=== PATIENT | male | born 1930 | race Caucasian/White ===

== ENCOUNTER → 2017-09-26 | Outpatient (CLI) | payer MEDICARE, OTHER ==
[~2017-09-26] MED LIST: AMBIEN 10MG10 MG PO; ANTIVERT 12.512.5 MG PO; ASPIRIN 32325 MG/TAB PO; ASPIRIN E.C. 8181 MG PO; BETA BLOCKER; CARDI-OMEGA1000 MG PO; CITALOPRAM20 MG PO; DOXYCYCLINE 10100 MG PO; FAMOTIDINE20 MG PO; FLOMAX; GABAPENTIN300 M1 PO; GABAPENTIN300 MG PO; METOPROLOL TART25 MG PO; MIRAPEX 0.125MG PO; MIRAPEX0.25 MG PO; MIRAPEX0.5 MG PO; MULTIPLE VITAMI1 CAP PO; NEURONTIN100 MG/CAP PO; NORCO 325 MG-51 TAB; NORCO 325 MG-51 TAB PO; PEPCID AC20 M1 PO; PLAVIX 75MG TAB75 MG PO; VITAMIN C BUFF500 MG PO; VITAMIN COMPLEX1 TA1 PO; ZOCOR; ZOCOR40 MG PO; ZOLPIDEM TART10 MG PO; ZOLPIDEM10 MG PO
== END ==
LOC: COL.RAD 10:13
DX: K80.20 Calculus of gallbladder without cholecystitis without obstruction (principal)

== ENCOUNTER → 2018-01-15 | Outpatient (CLI) | payer MEDICARE, OTHER | LOC: COL.RAD 12:42 | DX: E04.1 Nontoxic single thyroid nodule (principal) ==

== ENCOUNTER → 2018-07-19 | Outpatient (CLI) | payer MEDICARE, OTHER | LOC: COL.VAS 11:07 | DX: F01.50 Vascular dementia, unspecified severity, without behavioral disturbance, psychotic disturbance, mood disturbance, and anxiety (principal); I63.9 Cerebral infarction, unspecified; E04.1 Nontoxic single thyroid nodule | CPT/HCPCS: A9585 ==

== ENCOUNTER 2020-09-06 13:32 | Inpatient (IN) | payer MEDICARE, OTHER ==
[~2020-09-06] VITALS: Ht 182.9 cm; Wt 80.6 kg
[2020-09-06 13:53] LABS: BASO # 0.1 (0.0-0.2); BASO % 0.8 % (0.0-2.0); EOS # 0.1 (0.0-0.7); EOS % 1.4 % (0-4.0); GRAN # 4.5 (1.4-6.5); HEMATOCRIT 46.1 % (42.0-52.0); HEMOGLOBIN 15.5 g/dl (13.5-18.0); LYMPH # 1.9 (1.2-3.4); LYMPH % 26.3 % (20.0-51.0); MEAN CELL VOLUME 94 fl (80.0-100.0); MEAN CORPUSCULAR HEMOGLOBIN 31 pg (27.0-31.0); MEAN CORPUSCULAR HGB CONC 34 g/dl (33.0-37.0); MEAN PLATELET VOLUME 11.9 fl (7.4-10.4); MONO # 0.5 (0.1-0.6); MONO % 7.4 % (1.7-9.3); PLATELET COUNT 191 K/mm3 (130-400); RED BLOOD COUNT 4.93 M/mm3 (4.20-5.60); REDCELL DISTRIBUTION WIDTH-CV 12.4 % (11.5-14.5)
[2020-09-06 14:07] LABS: MAGNESIUM 2.2 mg/dL (1.6-2.3)
[2020-09-06 14:21] LABS: TROPONIN-I 0.075 ng/mL (0.000-0.035)
[2020-09-06 14:35] LABS: ALBUMIN 3.6 gm/dL (3.5-5.0); BILIRUBIN,TOTAL 0.8 mg/dL (0.0-1.0); CALCIUM 8.7 mg/dL (8.4-10.2); CREATININE, serum 1.15 (0.66-1.25); POTASSIUM 3.9 mmol/L (3.4-5.0)
[2020-09-06] MEDS ORDERED: SEROQUEL 2525 MG/TAB PO (16:31)
[2020-09-06] MEDS ORDERED: ARICEPT10 MG PO (16:35)
[2020-09-06] MEDS ORDERED: SYNTHROID 0.0.025 MG PO (16:37)
[2020-09-06] MEDS ORDERED: SINGULAIR 110 MG/TAB PO (16:39)
[2020-09-06 17:44] VITALS: BP 109/56; PULSE 52; TEMP 97.6
[2020-09-06 19:26] VITALS: BP 114/64; PULSE 57; TEMP 97.5
--- NOTE | 2020-09-06 20:32 | NUR ---
Pt in bed. Oriented to self. Takes HS meds without problem. Has SL to left wrist without redness or swelling. Denies pain. Bed alarm set, pt reports fall this AM without injury.
[2020-09-07] VITALS (7 sets, daily range): BP systolic 96–137; BP diastolic 45–67; PULSE 55–66; TEMP 97.2–98.4
--- NOTE | 2020-09-07 00:25 | NUR ---
PT BELLIGERENT, TRYING TO GET OOB UNASSISTED. THREATENED TO HIT STAFF. WAS ABLE TO RE-DIRECT AND BECAME MORE CALM AND STAYED IN BED.
--- NOTE | 2020-09-07 06:00 | NUR ---
TAKES AM MED WITHOUT PROBLEM THIS AM. COOPERATIVE WITH STAFF.
[2020-09-07 07:06] LABS: CALCIUM 8.6 mg/dL (8.4-10.2); CREATININE, serum 1.2 (0.66-1.25); POTASSIUM 3.6 mmol/L (3.4-5.0)
[2020-09-07 07:26] LABS: BASO # 0.1 (0.0-0.2); BASO % 0.7 % (0.0-2.0); EOS # 0.1 (0.0-0.7); EOS % 1.2 % (0-4.0); GRAN # 5.4 (1.4-6.5); GRAN % 72.3 % (42.2-75.2); HEMATOCRIT 44.8 % (42.0-52.0); HEMOGLOBIN 14.8 g/dl (13.5-18.0); LYMPH # 1.3 (1.2-3.4); LYMPH % 17.7 % (20.0-51.0); MEAN CELL VOLUME 96 fl (80.0-100.0); MEAN CORPUSCULAR HEMOGLOBIN 32 pg (27.0-31.0); MEAN CORPUSCULAR HGB CONC 33 g/dl (33.0-37.0); MEAN PLATELET VOLUME 12.3 fl (7.4-10.4); MONO # 0.6 (0.1-0.6); MONO % 7.8 % (1.7-9.3); PLATELET COUNT 179 K/mm3 (130-400); RED BLOOD COUNT 4.69 M/mm3 (4.20-5.60); REDCELL DISTRIBUTION WIDTH-CV 12.6 % (11.5-14.5)
--- NOTE | 2020-09-07 11:10 | NUR ---
Plan is to evaluate for snf or home. MITZI spoke with Destiney (mitzi) with [facility] and Patient pcp Dr. Lissette Whitt about patient care. Destiney left message about the patient possible need for additional care. Destiney reports that she offered that family private duty care and home health services. Destiney reports that patient has dementia and but also the is experiancing some memory loss. MITZI contacted Alma at for additional information about the husbands care. Alma reports that they reside locally and at home. Alma indicated that she is the care provided and does not believe that they need additonal care supports while she can still do it. Alma completed assessment. Patient is reported to use a cane and walker interchanging, does best with walker. Patient is reports to have no othe DME use for care. Patient is reports to have incontinence. Patient prefers [facility] for Pharmacy. \ reports that they have a son and dtr in law Eufemia who is apart of [employer]. Alma gave permission to discuss healthcare information with Eufemia verbally. Eufemia Kareem . reports that she has most of the information. They have a poa but not on file, unknown who is named on POA. They are to provide us with a copy. Eufemia reports that she believe that the patient is declining and they (her and her ) are recieving increased calls about the patient running off, falling, and tolieting. Eufemia reports that they would need to have an evaluation of care, pt, ot, in order for them to make a decision to come home. Eufemia reports that they may be open to retirement care however his is not due to not being able to visit. DTR-in Law concerned with the wifes ability to care for patient. DTR states that she would like patient to be able to walk okay before coming home and use restroom. Awaiting PT-OT screen for next review of care.
--- NOTE | 2020-09-07 11:30 | NUR ---
Patient was not able to stand and work with PT this morning. They helped him to the side of the bed but he could not sit on his own or stand and put weight on his legs. We transferred him to the chair. He was not able to put any weight on his left leg and was leaning over onto the right with the transfer. He denies pain. He does not understand where he is or why he is here. Have spoken with his , she asked that we speak with Eufemia his daughter in law. Spoke with Eufemia and gave her an update ont he patients status. No other changes at this time. Call light within reach. Bed/chair alarm on.
--- NOTE | 2020-09-07 15:30 | NUR ---
Spoke with patients . She is upset because the patient is not discharging. She wants him at home. Explained that patient is very weak and can not stand without max 2 person assist. She stated that we are keeping him down and he will not do well when he leaves. She is upset about the visitor policy. She thinks he will be able to come home and walk with a walker. Explained that as of right now going home is not a safe option. She stated she would call her son and daughter in law. She stated we are holding him here without treating him. Explained that we are, he has physical therapy working with him and that we are checking his labs. She stated we keep saying it is cardiac but its not his heart. Explained that his labs are showing elevated troponin. Gave the patients phone number to the physician so he can speak with her directly. Also spoke with the daughter in law again about the patient and updated her as well. No other changes at this time. Call light within reach. Bed alarm on.
--- NOTE | 2020-09-07 20:15 | NUR ---
Pt in bed. Is oriented to self and birthday, does not know where he is or why he is here. Pt is [place]. Attempted to orient pt. Takes HS med without problem. Has IVF infusing to right forearm, no redness or swelling noted. Incontinent of urine, bed linens changed. Bed alarm on.
--- NOTE | 2020-09-07 22:30 | NUR ---
Pt's Alma called. Asks for update and questions why no one has called her about her husbands status. States "it sounded like he was on deaths door". Reviewed SS note with Alma, at first she didn't remember anyone calling her, then remembered after reading the note to her. Alma reports having "insurance" for her to come home and have home care, she repeats this 3 times during the call. Informed Alma of pts status and his weakness. She insists she wants pt to come home. Did tell Alma we would have the doctor call her after pt is seen in the morning. She then again asks what was wrong with her and why no one has called her. Reviewed the information with her again.
[2020-09-08 00:04] VITALS: BP 118/67; PULSE 65; TEMP 98.5
--- NOTE | 2020-09-08 04:15 | NUR ---
Pt has scooted self to foot of bed. Wants to get up, then reports being dizzy and assisted back to bed. Depends changed due to incontinence of urine. Bed alarm on.
[2020-09-08 04:46] VITALS: BP 130/60; PULSE 60; TEMP 98.7
--- NOTE | 2020-09-08 05:29 | NUR ---
Pt has legs hanging off bed. Reports wanting to go to the bathroom, is too weak to sit up on his own. Depends changed in bed at this time.
[2020-09-08 07:26] VITALS: BP 103/85; PULSE 53; TEMP 98
[2020-09-08 07:48] LABS: BASO # 0.1 (0.0-0.2); BASO % 0.8 % (0.0-2.0); EOS # 0.1 (0.0-0.7); GRAN # 4.1 (1.4-6.5); HEMOGLOBIN 15.3 g/dl (13.5-18.0); LYMPH # 1.6 (1.2-3.4); LYMPH % 24.7 % (20.0-51.0); MEAN CELL VOLUME 96 fl (80.0-100.0); MEAN CORPUSCULAR HEMOGLOBIN 31 pg (27.0-31.0); MEAN CORPUSCULAR HGB CONC 33 g/dl (33.0-37.0); MEAN PLATELET VOLUME 12.2 fl (7.4-10.4); MONO # 0.5 (0.1-0.6); PLATELET COUNT 172 K/mm3 (130-400); RED BLOOD COUNT 4.88 M/mm3 (4.20-5.60); REDCELL DISTRIBUTION WIDTH-CV 12.5 % (11.5-14.5)
[2020-09-08 08:00] LABS: CALCIUM 8.4 mg/dL (8.4-10.2); CREATININE, serum 1.07 (0.66-1.25); POTASSIUM 3.7 mmol/L (3.4-5.0)
--- NOTE | 2020-09-08 11:20 | NUR ---
I have spoken with daughter in law, Eufemia Serna @[phone] regarding the palliative care consult ordered today. She reports to me that pt has been declining at home but was ambulating with walker, eating and drinking at home, although often didn't recognize his and did not recognize his house as his home. Here he is requesting to go to [place]--which Eufemia reports was his home town where he grew up. Their goals for him are to keep him at home and comfortable and will allow a natural to occur. Alma, , is struggling at home without him--although by report, she also has some dementia. I cannot clearly identify a diagnosis for hospice admission, other than pt has lost 13# since last office visit, and family does report a significant decline in functioning these last few months especially. They would prefer not to have him go to a shelter but would like to keep him at home. We discussed home health vs hospice services. I did get Eufemia's permission to contact two of our local hospice agencies to review the case and see if a qualifying diagnosis might be seen by them. I have spoken with Eufemia about both agencies reviewing Esequiel's information and that they may be calling to talk with her later on. She seemed pleased with this progress.
[2020-09-08 12:00] VITALS: BP 180/67; PULSE 68; TEMP 98
--- NOTE | 2020-09-08 14:21 | NUR ---
I have spoken with [facility] who feels that they can defend current situation as hospice appropriate meeting criteria. [facility] would be able to provide palliative home health but did not feel that he met hospice criteria. Alma Serna has requested a hospital bed for pt and it cannot be delivered until later this evening. We will plan on discharge to home under [facility] tomorrow. I have spoken with both Bob and Laura at [facility]. I have spoken with [facility] about this plan and we will plan on discharge by EMS tomorrow.
--- NOTE | 2020-09-08 15:00 | NUR ---
Catherized patient. Spoke with hospitalist. Patient stopped voiding this morning. He was incontinent and after changing him at 0930 he stopped voiding. He stated he needed to go but was not able to. Used and 18fr catheter to catherize patient. 800ml of clear yellow urine returned. Patient tolerated well. Urine sample sent to lab. He has been very confused and keeps trying to get up out of bed/chair. Bed alarm is on. His family is aware of the confusion. No other changes at this time. Call light within reach. Bed alarm on.
--- NOTE | 2020-09-08 15:21 | NUR ---
[employer] contacted patient's , Alma this morning about PT/OT evaluation and recommendation for SNF. Alma states she would like to speak with her family about this. AVA then received a phone call from patient's daughter in law, Eufemia who requested to be the point of contact as Alma gets overwhelmed easily with everything. Eufemia inquired about hospice options so AVA called [facility] about a palliative consult. AVA collaborated with Mary Palliative RN who worked with the family today and [facility] to make arrangements for patient to return home on hospice, tomorrow. [facility] was updated about the plan. AVA will follow up with [facility] and family tomorrow to establish a discharge time and will set up EMS transport.
[2020-09-08 15:50] LABS: MUCOUS Present /lpf; PH 5 (5-8); SQUAMOUS EPITHELIAL None Seen /hpf; URINE APPEARANCE Clear; URINE BACTERIA None Seen /hpf; URINE BILIRUBIN Negative (NEGATIVE); URINE BLOOD 2+ (NEGATIVE); URINE COLOR Yellow; URINE GLUCOSE Negative (NEGATIVE); URINE KETONE Negative (NEGATIVE); URINE LEUKOCYTE ESTERASE Negative (NEGATIVE); URINE NITRATE Negative (NEGATIVE); URINE PROTEIN(semi-quant) Negative (NEGATIVE); URINE UROBILINOGEN Negative (NEGATIVE); URINE WBC 0-2 /hpf
[2020-09-08 16:00] VITALS: BP 148/65; PULSE 72; TEMP 97.8
[2020-09-08 18:05] LABS: COLLECTION METHOD CLEAN CATCH
--- NOTE | 2020-09-08 19:00 | NUR ---
Patient continues to be confused this afternoon. He has been incontinent since being straight catherized earlier. Denies pain and nausea. He has his hearing aide in and it needs a new battery but he won't let me change it. No other changes at this time. Call light within reach. Bed alarm on.
--- NOTE | 2020-09-08 22:29 | NUR ---
Pt has been pleasently confused this evening. He was up in the chair until just now when the PCT and myself assisted him to bed. He required 2 assist with a walker. Patient was incontinent of urine, brief changed. He is hallucinating, seeing family sitting in the room with him. No complaints of pain. Bed alarm on
[2020-09-08 23:05] VITALS: BP 105/66; PULSE 72; TEMP 98.3
[2020-09-09 01:41] VITALS: BP 116/60; PULSE 69; TEMP 97.5
--- NOTE | 2020-09-09 01:51 | NUR ---
Pt became increasingly agitated. Max assist x2 to the commode. Patient did have a large bowel movement, but was not able to void. Bladder scan with 400+ scanned. Order to place champagne.
--- NOTE | 2020-09-09 02:15 | NUR ---
Coffey catheter placed by Laura RN
[2020-09-09 04:13] VITALS: BP 143/77; PULSE 78; TEMP 99.1
--- NOTE | 2020-09-09 04:15 | NUR ---
Pt has been very agitated since placing the champagne catheter. He was upset that it was there. Attempted mitts, which he was able to get off. He was initially not pulling on it, but did eventually break the tubing. 8cc removed from balloon and champagne discontinued. Patient continues to be agitated and is messing with his telemetry. New patches replaced several times. In sitting with the patient at this time.
--- NOTE | 2020-09-09 06:59 | NUR ---
Pt has slept the last few hours.
[2020-09-09 08:00] VITALS: BP 136/71; PULSE 79; TEMP 97.5
--- NOTE | 2020-09-09 08:00 | NUR ---
PATIENT IS CONFUSED AND AGGITATED THIS AM. PATIENT TRYING TO CLIMB OUT OF BED. PATIENT ASSISTED WITH 2-3 ASSIST INTO BEDSIDE CHAIR. PATIENT WAS INCONTINENT OF URINE IN BED, LINENS CHANGED AND PATIENT CLEANED UP. PATIENT VERY COMBATIVE DURING CARES AND PUNCHED EQUIPMENT SERVICE LEAD IN RIGHT FLANK. MITTS WERE INPLACE TO BUE. WELDING EQUIPMENT REPAIRER REPORTS PATIENT BROKE HIS ROBBINS AND NURSING HAD TO FINISH TAKING OUT ROBBINS. NURSING CALLED TO [facility] TELE THIS AM FOR THE SAME REASON. PATIENT REFUSING TO TAKE AM MEDS. HEAD TO TOE ASSESSMENT DONE. PATIENT IS A DNR AND PLANS ARE TO DISCHARGE HOME WITH HOSPICE TODAY. CHAIR ALARM INPLACE. CALL LIGHT IN REACH. PATIENT IN SITE OF NURSES.
--- NOTE | 2020-09-09 09:27 | NUR ---
Spoke with Eufemia, daughter in law, this morning and she reports that the bed had been delivered and that Alma is anxious for him to get home.Pt was quite agitated last night with champagne placement and did require someone to be with him for monitoring his behaviors in the night. I spoke with Bob who is aware that additional help may be needed and will talk with the family directly about getting this started. Plan for discharge around 3-4pm today by EMS which Kenzie will coordinate.
[2020-09-09 11:38] VITALS: BP 132/81; PULSE 68; TEMP 98
[2020-09-09] MEDS ORDERED: SEROQUEL 2525 MG/TAB PO (11:43)
[2020-09-09] MEDS ORDERED: ASPIRIN E.C. 8181 MG PO (11:44)
[2020-09-09] MEDS ORDERED: PROTONIX 40MG T40 MG PO (11:45)
--- NOTE | 2020-09-09 13:43 | NUR ---
Patient to discharge home with [facility] today. AVA coordinated with Bob, Corporate Safety Director at [facility] who is meeting with family today at 1500 to do intake paperwork. Bob requested a leaf size picker time of 1445 so patient will arrive at home around 1500. AVA contacted [facility] and scheduled leaf size picker time for 1445. AVA contacted patient's daughter in law, Eufemia who is in agreement with discharge time and states her daughter and son in law will be at the house to assist when patient arrives. Eufemia had no additional questions or concerns at this time and provided verbal consent on patient transfer authorization form. AVA faxed discharge orders and medications to [facility]. No additional needs at this time.
--- NOTE | 2020-09-09 15:00 | NUR ---
PATIENT DISCHARGING TO HOME WITH HOSPICE VIA EMS. GAVE INFO PACKET TO EMS WELL VERBAL UPDATE. AIRFREIGHT OPERATIONS AGENT ALREADY ARRANGED FOR FAMILY & HOSPICE TO MEET EMS AT HIS HOME AT DISCHARGE. DC'D RIGHT FORARM, COVERED SITE WITH [employer]. PATIENT DOESN'T HAVE ANY CLOTHES. PATIENT DC'D IN GOWN AND COVERED IN SEVERAL WARM BLANKETS. PATIENT DISCHARGED.
== END 2020-09-09 15:00 | disposition hospice, home (50) | DRG 281 ==
LOC: COL.ER 13:32 → SURG 16:26
PROVIDERS: Emergency Medicine; Physician Assistant; Student in an Organized Health Care Education/Training Program; ADMIT Hospitalist
DX: I21.4 Non-ST elevation (NSTEMI) myocardial infarction (principal); I50.22 Chronic systolic (congestive) heart failure; I95.1 Orthostatic hypotension; I25.10 Atherosclerotic heart disease of native coronary artery without angina pectoris; E78.5 Hyperlipidemia, unspecified; F03.90 Unspecified dementia, unspecified severity, without behavioral disturbance, psychotic disturbance, mood disturbance, and anxiety; R77.8 Other specified abnormalities of plasma proteins; I11.0 Hypertensive heart disease with heart failure; Z51.5 Encounter for palliative care; Z66 Do not resuscitate; I45.10 Unspecified right bundle-branch block; E86.0 Dehydration; R94.31 Abnormal electrocardiogram [ECG] [EKG]; Z95.1 Presence of aortocoronary bypass graft; Z86.73 Personal history of transient ischemic attack (TIA), and cerebral infarction without residual deficits; Z87.891 Personal history of nicotine dependence; Z88.0 Allergy status to penicillin
CPT/HCPCS: OP; 99232-AI; 99239; C9113; J1650; J7030